=== PATIENT | male | born 1990 | race Caucasian/White ===

== ENCOUNTER 2018-03-22 13:11 | Emergency (ER) | payer OTHER ==
[2018-03-22 13:32] VITALS: BP 123/69; PULSE 116; TEMP 99; BMI 29.0
[2018-03-22] MEDS ORDERED: IBUPROFEN 400 MG TABLET (FP) PO ONE ×2 (14:29→14:32)
[2018-03-22] MEDS ORDERED: ONDANSETRON *ODT* 4 MG TABLET SL ONE (14:29)
[2018-03-22] MEDS ORDERED: ONDANSETRON *ODT* 4 MG TABLET ONE (14:32)
--- NOTE | 2018-03-22 14:47 | PDOC ---
History of Present Illness - General Chief Complaint: Cold Symptoms Stated Complaint: FLU SYMPTOMS Time Seen by Provider: 03/22/18 14:16 History Source: Patient Exam Limitations: No Limitations Past History - Travel Traveled outside of the country in the last 30 days: No Close contact w/someone who was outside of country & ill: No - Past Medical History Allergies/Adverse Reactions: Allergies Allergy/AdvReac Type Severity Reaction Status Date / Time No Known Allergies Allergy Verified 07/31/14 20:35 Home Medications: Ambulatory Orders Albuterol Sulfate Inhaler - [Ventolin HFA Inhaler -] 1 - 2 inh PO Q4H #1 inhaler 03/22/18 Ibuprofen 800 mg PO TID #30 tablet 03/22/18 Ondansetron [Zofran Odt -] 4 mg SL TID #10 od.tablet 03/22/18 Oseltamivir Phosphate [Tamiflu] 75 mg PO BID #10 capsule 03/22/18 - Immunization History Immunization Up to Date: Yes - Suicide/Smoking/Psychosocial Hx Smoking History: Former smoker Have you smoked in the past 12 months: No Information on smoking cessation initiated: No Hx Alcohol Use: No Drug/Substance Use Hx: No Substance Use Type: None Review of Systems - Review of Systems Able to Perform ROS?: Yes Comments:: 03/22/18 15:05 CONSTITUTIONAL: Present: Fever, chills, body aches Absent: diaphoresis, generalized weakness, malaise, loss of appetite HEENT: Present: rhinorrhea, nasal congestion, throat pain. Absent: difficulty swallowing, mouth swelling, ear pain, eye pain, visual Changes CARDIOVASCULAR: Absent: chest pain, loss of consciousness, palpitations, irregular heart rate, peripheral edema RESPIRATORY: Present: Cough Absent: shortness of breath, dyspnea with exertion, orthopnea, wheezing, stridor, hemoptysis GASTROINTESTINAL: Absent: abdominal pain, abdominal distension, nausea, vomiting, diarrhea, constipation, melena, hematochezia SKIN: Absent: rash, itching, pallor NEUROLOGIC: Present: headache Absent: focal weakness or paresthesias, dizziness, unsteady gait, seizure, mental status changes, bladder or bowel incontinence Is the patient limited Grenadian proficient: No *Physical Exam - Vital Signs Last Vital Signs Temp Pulse Resp BP Pulse Ox 99.0 F 116 H 18 123/69 98 03/22/18 13:26 03/22/18 13:26 03/22/18 13:26 03/22/18 13:26 03/22/18 13:26 - Physical Exam Comments: 03/22/18 15:05 GENERAL: Well developed, well nourished. Awake and alert. No acute distress. HEENT: Normocephalic, atraumatic. PERRLA, EOMI. No conjunctival pallor. Sclera are non- icteric. Moist mucous membranes. Oropharynx is clear. NECK: Supple. Full ROM. No JVD. Carotid pulses 2+ and symmetric, without bruits. No thyromegaly. No lymphadenopathy. CARDIOVASCULAR: Regular rate and rhythm. No murmurs, rubs, or gallops. Distal pulses are 2+ and symmetric. PULMONARY: No evidence of respiratory distress. Lungs clear to auscultation bilaterally. No wheezing, rales or rhonchi. ABDOMINAL: Soft. Non-tender. Non-distended. No rebound or guarding. No organomegaly. Normoactive bowel sounds. MUSCULOSKELETAL Normal range of motion at all joints. No bony deformities or tenderness. No CVA tenderness. EXTREMITIES: No cyanosis. No clubbing. No edema. No calf tenderness. SKIN: Warm and dry. Normal capillary refill. No rashes. No jaundice. NEUROLOGICAL: Alert, awake, appropriate. Cranial nerves 2-12 intact. No deficits to light touch and temperature in face, upper extremities and lower extremities. No motor deficits in the in face, upper extremities and lower extremities. Normoreflexic in the upper and lower extremities. Normal speech. Toes are down- going bilaterally. Gait is normal without ataxia. PSYCHIATRIC: Cooperative. Good eye contact. Appropriate mood and affect. Moderate Sedation - Procedure Monitoring Vital Signs: Procedure Monitoring Vital Signs Temperature 99.0 F 03/22/18 13:26 Pulse Rate 116 H 03/22/18 13:26 Respiratory Rate 18 03/22/18 13:26 Blood Pressure 123/69 03/22/18 13:26 O2 Sat by Pulse Oximetry (%) 98 03/22/18 13:26 ED Treatment Course - Medications Given in the ED: ED Medications Discontinued Medications Generic Name Dose Route Start Last Admin Trade Name Freq PRN Reason Stop Dose Admin Ondansetron HCl 4 mg 03/22/18 14:29 03/22/18 14:36 Zofran Odt - SL 03/22/18 14:30 4 mg ONCE ONE Administration *DC/Admit/Observation/Transfer Diagnosis at time of Disposition: Influenza - Discharge Dispostion Disposition: HOME Condition at time of disposition: Stable Decision to Admit order: No - Referrals Referrals: Thomas Levine [Primary Care Provider] - - Patient Instructions Additional Instructions: You have the flu. This is a virus that will get better on its own in approximately 7-10 days. You will most likely have a fever for 7-10 days because of the flu. This is to be expected. Drink plenty of fluids to prevent dehydration and get plenty of rest. Warm tea and cough drops may help your symptoms as well. Take the tamiflu twice a day for 5 days to help reduce the symptoms of the flu. This medication will not cure the flu. Take Motrin as directed for pain and fever. Take all other medications as prescribed. Follow up with your primary care doctor this week Return to the ED for difficulty breathing, shortness of breath, weakness, or if you have any other changes in your symptoms. - Post Discharge Activity Forms/Work/School Notes: Back to Work
== END 2018-03-22 15:21 | disposition home or self-care (01) ==
LOC: JERFT 13:11
DX: J11.1 Influenza due to unidentified influenza virus with other respiratory manifestations (principal); Z87.891 Personal history of nicotine dependence
CPT/HCPCS: 99281-25; Q0162

== ENCOUNTER 2018-10-25 21:16 | Emergency (ER) | payer OTHER ==
--- NOTE | 2018-10-25 21:21 | PDOC ---
Rapid Medical Evaluation Time Seen by Provider: 10/25/18 21:20 Medical Evaluation: Allergies Allergy/AdvReac Type Severity Reaction Status Date / Time No Known Allergies Allergy Verified 07/31/14 20:35 10/25/18 21:20 I have performed a brief in-person evaluation of this patient. The patient presents with a chief complaint of: neck and head pain Pertinent physical exam findings:stable and in NAD, non-focal I have ordered the following: n/a The patient will proceed to the ED for further evaluation. Discharge Disposition - Referrals Referrals: Vj Todd MD [Primary Care Provider] - - Patient Instructions - Post Discharge Activity
[2018-10-25 21:22] VITALS: TEMP 98.1; BMI 29.0
--- NOTE | 2018-10-25 22:37 | PDOC ---
Attending Attestation - Resident Resident Name: Herbert Sandoval - ED Attending Attestation I have performed the following: I have examined & evaluated the patient, The case was reviewed & discussed with the resident, I agree w/resident's findings & plan - HPI HPI: 10/26/18 02:23 see resident hpi - Physicial Exam PE: 10/26/18 02:24 GENERAL: Awake, in no acute distress HEAD: No signs of trauma EYES: ENT: Moist mucosa NECK: point tenderness left lateral C3/4 region reproducing CC with PVMS LUNGS:. Normal work of breathing. HEART: Regular rate and rhythm, ABDOMEN: Soft, nondistended CHEST WALL: BACK: No midline tenderness. EXTREMITIES:. 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
[2018-10-26] MEDS ORDERED: SODIUM CHLORIDE 1,000 ML IV STA (00:12)
[2018-10-26] MEDS ORDERED: ACETAMINOPHEN 1000 MG/100 ML VIAL (NON FORMULARY) IVPB ONE (00:12)
[2018-10-26] MEDS ORDERED: METOCLOPRAMIDE HCL INJECTION 10 MG/2 ML VIAL IVPB ONE (00:12)
--- NOTE | 2018-10-26 00:20 | PDOC ---
History of Present Illness - General Chief Complaint: Headache Stated Complaint: HEADACHE Time Seen by Provider: 10/25/18 21:20 History Source: Patient Exam Limitations: No Limitations - History of Present Illness Initial Comments: 10/26/18 00:18 Mary Valle is an otherwise healthy 28M presenting with new onset L- sided headache that extends to his L cheek and neck. Reports 3 days of a left-sided neck pain and headache that comes and goes and is associated with facial tenderness and numbness. Random onset, no provocating factors, has not tried any medications to help with the pain. Headache is limited to L side and does not radiate, no prior history of any headaches. Denies F/C, N/V, C/D, chest pain, SOB, abd pain, weakness, dizziness. Denies dental issues. Started lifting weights 3 days ago, chest workouts. 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 Past History - Past Medical History Allergies/Adverse Reactions: Allergies Allergy/AdvReac Type Severity Reaction Status Date / Time No Known Allergies Allergy Verified 10/26/18 00:41 Home Medications: Ambulatory Orders NK [No Known Home Medication] 10/26/18 - Immunization History Immunization Up to Date: Yes - Suicide/Smoking/Psychosocial Hx Smoking History: Never smoked Have you smoked in the past 12 months: No Hx Alcohol Use: No Drug/Substance Use Hx: No Substance Use Type: None Review of Systems - Review of Systems Able to Perform ROS?: Yes Is the patient limited Israeli proficient: No Constitutional: No: Symptoms Reported HEENTM: No: Symptoms Reported Respiratory: No: Symptoms reported Cardiac (ROS): No: Symptoms Reported ABD/GI: No: Symptoms Reported : No: Symptoms Reported Musculoskeletal: Yes: Neck Pain (L neck) Integumentary: No: Symptoms Reported Neurological: Yes: Headache (L head), Numbness (L cheek). No: Unsteady Gait, Ataxia Endocrine: No: Symptoms Reported Hematologic/Lymphatic: No: Symptoms Reported All Other Systems: Reviewed and Negative *Physical Exam - Vital Signs Last Vital Signs Temp Pulse Resp BP Pulse Ox 98.1 F 81 19 113/63 98 10/25/18 21:19 10/25/18 21:19 10/25/18 21:19 10/25/18 21:19 10/25/18 21:19 - Physical Exam General Appearance: Yes: Nourished, Appropriately Dressed. No: Apparent Distress HEENT: positive: EOMI, YESY, Normal ENT Inspection, Normal Voice, Pharynx Normal. negative: Scleral Icterus (R), Scleral Icterus (L), Pharyngeal Erythema , Tonsillar Exudate, Tonsillar Erythema, Nasal Congestion, Rhinorrhea, Hearing Decreased, Excessive drooling Neck: positive: Tender (L neck, muscles tense), Trachea midline, Normal Thyroid , Supple. negative: Lymphadenopathy (R), Lymphadenopathy (L) Respiratory/Chest: positive: Lungs Clear, Normal Breath Sounds. negative: Respiratory Distress, Crackles, Rales, Rhonchi Cardiovascular: positive: Regular Rhythm, Regular Rate. negative: Murmur Gastrointestinal/Abdominal: positive: Normal Bowel Sounds, Flat, Soft. negative : Tender, Organomegaly Musculoskeletal: positive: Normal Inspection. negative: CVA Tenderness Extremity: positive: Normal Capillary Refill, Normal Inspection, Normal Range of Motion, Tender, Pelvis Stable Integumentary: positive: Normal Color, Dry, Warm Neurologic: positive: Fully Oriented, Alert, Normal Mood/Affect, Normal Response , Motor Strength 5/5, Abnormal Cranial NS (L cheek some numbness and tenderness to palpation), Numbness. negative: Facial Droop ED Treatment Course - LABORATORY CBC & Chemistry Diagram: 10/26/18 00:15 10/26/18 00:13 Medical Decision Making - Medical Decision Making 10/26/18 00:18 Mary Valle is an otherwise healthy 28M presenting with new onset L- sided headache that extends to his L cheek and neck. Given L facial nerve distribution numbness, concern for ICH vs. mass compressing cranial nerves. Will order CT head, give IV NS 1L as well as Ofirmev and reglan for headache, get CMP and CBC. More likely to be MSK complaint given history, but will r/o worst causes. 10/26/18 02:12 CT head negative for any acute intracranial pathology. Labs all WNL. Headache most likely caused by a muscle spasm in the neck muscles. Good to be discharged home with recommendation to rest L arm/back and use NSAIDs as needed for pain. *DC/Admit/Observation/Transfer Diagnosis at time of Disposition: Left facial numbness, Neck pain on left side Headache Qualifiers: Headache type: unspecified Headache chronicity pattern: acute headache Intractability: not intractable Qualified Code(s): R51 - Headache - Discharge Dispostion Disposition: HOME - Referrals Referrals: Vj Todd MD [Primary Care Provider] - - Patient Instructions Printed Discharge Instructions: DI for Headache, DI for Neck Pain Additional Instructions: Today you were evaluated for neck pain and headache. We were concerned about your facial numbness and pain, so we got a CT scan of your brain that did not show any bleeding or injury to your brain that could be the cause. You likely are having some muscle spasms and tightness in your neck muscles that are pinching the nerves in your neck and face, possibly related to your exercise recently. Please try to relax your neck and hold off on strenuous exercises involving your left arm that could be causing your neck tightness. Take Tylenol or Motrin every 4-6 hours as needed for the swelling and pain. Please follow-up with your primary doctor in the next 3 days for further evaluation of your neck pain and headache. Please return to the closest emergency room as soon as possible if you experience nausea, vomiting, worsening headache, become unable to move your mouth or jaw, become unable to move your neck, or any other new or concerning symptoms. - Post Discharge Activity
[2018-10-26] MEDS ORDERED: METOCLOPRAMIDE HCL INJECTION 10 MG/2 ML VIAL ONE (00:23)
[2018-10-26] MEDS ORDERED: ACETAMINOPHEN INJECTION 100 ML IVPB ONE (00:23)
[2018-10-26 00:27] LABS: BASO % 0.6 % (0-2.0); EOS % 0.6 % (0-4.5); HEMATOCRIT 48.4 % (35.4-49); HEMOGLOBIN 15.7 GM/dL (11.7-16.9); LYMPH % 30.5 % (8-40); MCH 26.5 pg (25.7-33.7); MCHC 32.3 g/dl (32.0-35.9); MEAN PLT VOLUME 8.7 fl (7.5-11.1); MONO % 8.7 % (3.8-10.2); NEUT % 59.6 % (42.8-82.8); PLATELET COUNT 284 K/MM3 (134-434); RDW 13.5 % (11.9-15.9); WHITE BLOOD COUNT 6.9 K/mm3 (4.0-10.0)
[2018-10-26 00:54] LABS: ALBUMIN 3.9 g/dl (3.4-5.0); BILIRUBIN,TOTAL 0.5 mg/dL (0.2-1); BLOOD UREA NITROGEN 19.5 mg/dL (7-18); CALCIUM 9.1 mg/dL (8.5-10.1); CREATININE 1.2 mg/dL (0.55-1.3); POTASSIUM 4.1 mmol/L (3.5-5.1); TOT PROT 7.4 g/dl (6.4-8.2)
[2018-10-26 02:22] VITALS: BP 113/75; PULSE 74
== END 2018-10-26 02:24 | disposition home or self-care (01) ==
LOC: JER 21:16
PROC: 3E033GC Introduction of Other Therapeutic Substance into Peripheral Vein, Percutaneous Approach (ICD-10-PCS; principal; 2018-10-25)
PROC: 3E033NZ Introduction of Analgesics, Hypnotics, Sedatives into Peripheral Vein, Percutaneous Approach (ICD-10-PCS; 2018-10-25)
DX: M62.838 Other muscle spasm (principal); R51 Headache; M54.2 Cervicalgia
CPT/HCPCS: 36415; 70450-TC; 80053; 85025; 99283-25; J0131; J7030

== ENCOUNTER 2019-09-13 11:03 | Emergency (ER) | payer OTHER ==
[2019-09-13 11:24] VITALS: BP 112/71; PULSE 124; BMI 29.7
[2019-09-13] MEDS ORDERED: ACETAMINOPHEN 500 MG TABLET (FP) PO ONE (11:29)
[2019-09-13] MEDS ORDERED: ACETAMINOPHEN 500 MG TABLET (FP) ONE (11:35)
[2019-09-13] MEDS ORDERED: IBUPROFEN 600 MG TABLET (FP) PO ONE ×2 (11:48→11:55)
[2019-09-13] MEDS ORDERED: DEXAMETHASONE LIQUID 0.5 MG/5 ML PO ONE (11:54)
[2019-09-13] MEDS ORDERED: DEXAMETHASONE SOD PHOSPHATE 10 MG/1 ML VIAL ONE (11:55)
--- NOTE | 2019-09-13 11:55 | PDOC ---
History of Present Illness - General Chief Complaint: Sore Throat Stated Complaint: FEVER/ SORE THROAT Time Seen by Provider: 09/13/19 11:23 History Source: Patient Exam Limitations: Clinical Condition - History of Present Illness Initial Comments: 09/13/19 11:50 Patient with no significant past medical history present with complaint of 2 days history of sore throat and fever and painful to swallow which enlarged tonsils. Patient report taking Tylenol 2 hours prior to arrival. Denies nausea, vomiting, abdominal pain, diarrhea, cough, shortness of breath, headache, dizziness. Patient reported having COVID test done 3 months ago with positive antibiotics. Denies any other symptoms Is this a multiple visit Asthma Patient?: No Past History - Medical History Allergies/Adverse Reactions: Allergies Allergy/AdvReac Type Severity Reaction Status Date / Time shellfish derived Allergy Severe Swelling Verified 09/13/19 11:20 Home Medications: Ambulatory Orders Amoxicillin/Potassium Clav [Augmentin 875-125 Tablet] 1 each PO BID 7 Days #14 tablet 09/13/19 Ibuprofen 800 mg PO Q8H PRN #16 tablet 09/13/19 Anemia: No Cancer: No CVA: No COPD: No - Immunization History Immunization Up to Date: Yes - Psycho-Social/Smoking History Smoking History: Never smoked Have you smoked in the past 12 months: No Information on smoking cessation initiated: No - Substance Abuse Hx (Audit-C & DAST Scrn) In the last yr the pt used illegal drug/Rx for NonMed reason: No Score: Yes response is considered Positive: 0 Screen Result (Positive result requires Nsg. DAST-10): Negative Review of Systems - Review of Systems Able to Perform ROS?: Yes Is the patient limited Kenyan proficient: No Constitutional: No: Chills, Fever HEENTM: Yes: Symptoms Reported, See HPI, Throat Pain, Throat Swelling. No: Eye Pain, Blurred Vision, Tearing, Recent change in vision, Double Vision, Cataracts, Ear Pain, Ocular Prothesis, Ear Discharge, Nose Pain, Nose Congestion, Tinnitus, Nose Bleeding, Hearing Loss, Mouth Pain, Dental Problems, Difficulty Swallowing, Mouth Swelling, Other Respiratory: No: Symptoms reported, See HPI, Cough, Orthopnea, Shortness of Breath, SOB with Exertion, SOB at Rest, Stridor, Wheezing, Productive cough, Hemoptysis, Other Cardiac (ROS): No: Symptoms Reported, See HPI, Chest Pain, Edema, Irregular Heart Rate, Lightheadedness, Palpitations, Syncope, Chest Tightness, Other ABD/GI: No: Symptoms Reported, Nausea, Vomiting Musculoskeletal: No: Symptoms Reported Integumentary: No: Symptoms Reported Neurological: No: Symptoms reported, Headache, Dizziness All Other Systems: Reviewed and Negative *Physical Exam - Vital Signs Last Vital Signs Temp Pulse Resp BP Pulse Ox 101.7 F H 124 H 17 112/71 99 09/13/19 11:20 09/13/19 11:20 09/13/19 11:20 09/13/19 11:20 09/13/19 11:20 - Physical Exam 09/13/19 11:55 GENERAL: Well developed, well nourished. Awake and alert. No acute distress. HEENT: Moderately enlarged erythematous bilateral tonsils with white exudate bilateral. Oropharynx patent. No peritonsillar abscess. Normocephalic, atraumatic. PERRLA, EOMI. No conjunctival pallor. Sclera are non-icteric. Moist mucous membranes. NECK: Supple. Full ROM. Bilateral anterior cervical lymphadenopathy CARDIOVASCULAR: Regular rate and rhythm. No murmurs, rubs, or gallops. Distal pulses are 2+ and symmetric. PULMONARY: No evidence of respiratory distress. Lungs clear to auscultation bilaterally. No wheezing, rales or rhonchi. ABDOMINAL: Soft. Non-tender. Non-distended. No rebound or guarding. No organomegaly. Normoactive bowel sounds. MUSCULOSKELETAL Normal range of motion at all joints. SKIN: Warm and dry. Normal capillary refill. No cyanosis. No jaundice. NEUROLOGICAL: Alert, awake, appropriate. Gait is normal without ataxia. PSYCHIATRIC: Cooperative. Good eye contact. Appropriate mood General Appearance: Yes: Nourished, Appropriately Dressed. No: Apparent Distress ED Treatment Course - Medications Given in the ED: ED Medications Discontinued Medications Generic Name Dose Route Start Last Admin Trade Name Gauri PRN Reason Stop Dose Admin Acetaminophen 1,000 mg 09/13/19 11:29 09/13/19 11:35 Tylenol - PO 09/13/19 11:30 1,000 mg ONCE ONE Administration Medical Decision Making - Medical Decision Making 09/13/19 11:53 Patient with no significant past medical history present with complaint of 2 days history of sore throat and fever and painful to swallow which enlarged tonsils. Patient report taking Tylenol 2 hours prior to arrival. Denies nausea, vomiting, abdominal pain, diarrhea, cough, shortness of breath, headache, dizziness. Patient reported having COVID test done 3 months ago with positive antibiotics. Denies any other symptoms Exam significant for moderately enlarged erythematous tonsils with white exudates bilateral. No evidence of peritonsillar abscess. Moderate large bilateral anterior lymphadenopathy. Normal cardio and lung exam. Symptoms likely pharyngitis with tonsillitis. Rapid strep ordered to rule out strep. COVID tests ordered to evaluate for infection. Decadron 10 mg p.o. and Motrin 60 mg p.o. ordered for fever throat pain 09/13/19 13:20 Rapid strep negative but given patient enlarged with masses tonsils with exudate and fever, patient be discharged home Augmentin antibiotics and Motrin PRN for pain pending throat culture results with ENT follow-up Discharge - Discharge Information Problems reviewed: Yes Clinical Impression/Diagnosis: Pharyngitis Qualifiers: Pharyngitis/tonsillitis etiology: unspecified etiology Qualified Code(s): J02.9 - Acute pharyngitis, unspecified Acute tonsillitis Qualifiers: Pharyngitis/tonsillitis etiology: unspecified etiology Qualified Code(s): J03.90 - Acute tonsillitis, unspecified Condition: Stable Disposition: HOME - Admission No - Additional Discharge Information Prescriptions: Amoxicillin/Potassium Clav [Augmentin 875-125 Tablet] 1 each PO BID 7 Days #14 tablet Ibuprofen 800 mg PO Q8H PRN #16 tablet PRN Reason: pain - Follow up/Referral Referrals: Lee Alaniz MD [Staff Physician] - Dread Abebe MD [Staff Physician] - - Patient Discharge Instructions Patient Printed Discharge Instructions: DI for Pharyngitis/Tonsillopharyngitis -- Adult Additional Instructions: Take prescribed medication as prescribed. Gargle with salt water as needed to help with throat pain. Take prescribed medication and finish. Follow-up referred to ENT - Post Discharge Activity
[2019-09-13 12:54] LABS: THROAT:GRP A STREP ANTIGEN Negative (Negative)
[2019-09-13 13:09] VITALS: TEMP 98.5
== END 2019-09-13 13:08 | disposition home or self-care (01) ==
LOC: JERFT 11:03
DX: J02.9 Acute pharyngitis, unspecified (principal); J03.90 Acute tonsillitis, unspecified
CPT/HCPCS: 87070; 87077; 87880; 99284-25; U0003

== ENCOUNTER 2020-04-15 15:35 | Emergency (ER) | payer OTHER ==
[2020-04-15 15:45] VITALS: BP 127/80; PULSE 78; TEMP 97.5; BMI 33.0
[2020-04-15 17:14] LABS: BASO % 0.5 % (0-2.0); EOS % 1.6 % (0-4.5); LYMPH % 34.2 % (8-40); MCHC 33.3 g/dl (32.0-35.9); MEAN CELL VOLUME 84.2 fl (80-96); MEAN PLT VOLUME 8.7 fl (7.5-11.1); MONO % 12.2 % (3.8-10.2); NEUT % 51.5 % (42.8-82.8); PLATELET COUNT 293 K/MM3 (134-434); RBC 5.35 M/mm3 (4.00-5.60); RDW 13.3 % (11.9-15.9); WHITE BLOOD COUNT 5.6 K/mm3 (4.0-10.0)
[2020-04-15 17:40] LABS: CHLORIDE 105 mmol/L (98-107); POTASSIUM 3.9 mmol/L (3.5-5.1); SODIUM 139 mmol/L (136-145)
[2020-04-15 17:42] LABS: CALCIUM 8.9 mg/dL (8.5-10.1)
[2020-04-15 17:43] LABS: ALBUMIN 3.8 g/dl (3.4-5.0); ANION GAP 3 MMOL/L (8-16); BLOOD UREA NITROGEN 10.2 mg/dL (7-18); CO2 31 mmol/L (21-32); GLUCOSE,RANDOM 84 mg/dL (74-106)
[2020-04-15 17:46] LABS: SGOT/AST 30 U/L (15-37); SGPT/ALT 84 U/L (13-61)
[2020-04-15 17:48] LABS: BILIRUBIN,TOTAL 0.5 mg/dL (0.2-1); TOT PROT 7.4 g/dl (6.4-8.2)
[2020-04-15 17:49] LABS: ALK PHOS 76 U/L (45-117)
== END 2020-04-15 18:32 | disposition home or self-care (01) ==
LOC: JER 15:35
DX: R00.2 Palpitations (principal)
CPT/HCPCS: 36415; 71046-TC-FY; 80053; 82550; 84443; 84484; 85025; 93005; 93010; 99285-25

== ENCOUNTER 2020-11-03 11:44 | Emergency (ER) | payer OTHER ==
[2020-11-03 11:59] VITALS: BP 123/76; PULSE 90; TEMP 98.5; BMI 17.8
[2020-11-03 14:15] LABS: EOS % 1.4 % (0-4.5); HEMATOCRIT 45.8 % (35.4-49); HEMOGLOBIN 15.6 GM/dL (11.7-16.9); LYMPH % 35.9 % (8-40); MCH 28.1 pg (25.7-33.7); MEAN CELL VOLUME 82.6 fl (80-96); MEAN PLT VOLUME 8.5 fl (7.5-11.1); MONO % 9.7 % (3.8-10.2); PLATELET COUNT 308 10^3/uL (134-434); RBC 5.54 M/mm3 (4.00-5.60); RDW 13.4 % (11.9-15.9); WHITE BLOOD COUNT 5.5 K/mm3 (4.0-10.0)
[2020-11-03 14:35] LABS: CALCIUM 9.3 mg/dL (8.5-10.1)
[2020-11-03 14:36] LABS: ALBUMIN 3.9 g/dl (3.4-5.0); BLOOD UREA NITROGEN 11.2 mg/dL (7-18)
[2020-11-03 14:38] LABS: CREATININE 1.1 mg/dL (0.55-1.3)
[2020-11-03 14:40] LABS: BILIRUBIN,TOTAL 0.4 mg/dL (0.2-1); TOT PROT 7.8 g/dl (6.4-8.2)
== END 2020-11-03 16:28 | disposition home or self-care (01) ==
LOC: JER 11:44
DX: M54.2 Cervicalgia (principal)
CPT/HCPCS: 36415; 72040-TC; 80053; 85025; 99284-25

== ENCOUNTER 2023-01-28 08:58 | Emergency (ER) | payer OTHER ==
[2023-01-28 09:02] VITALS: BP 131/73; PULSE 66; RESP 18; TEMP 97.4; BMI 28.8
[2023-01-28 10:28] LABS: EOS % 1.3 % (0-4.5); HEMATOCRIT 46.8 % (35.4-49); HEMOGLOBIN 15.2 GM/dL (11.7-16.9); LYMPH % 40.1 % (8-40); MCH 27.5 pg (25.7-33.7); MCHC 32.5 g/dl (32.0-35.9); MEAN CELL VOLUME 84.7 fl (80-96); MONO % 9.8 % (3.8-10.2); NEUT % 47.8 % (42.8-82.8); PLATELET COUNT 301 10^3/uL (134-434); RBC 5.53 M/mm3 (4.00-5.60); RDW 13.3 % (11.9-15.9); WHITE BLOOD COUNT 4.6 K/mm3 (4.0-10.0)
[2023-01-28 10:33] LABS: URINE APPEARANCE CLEAR; URINE BILIRUBIN NEGATIVE (NEGATIVE); URINE COLOR YELLOW; URINE GLUCOSE (UA) NEGATIVE (NEGATIVE); URINE KETONE NEGATIVE (NEGATIVE); URINE LEUK ESTERASE NEGATIVE (NEGATIVE); URINE NITRITE NEGATIVE (NEGATIVE); URINE PROTEIN NEGATIVE (NEGATIVE); URINE UROBILINOGEN 0.2 mg/dL (0.2-1.0)
[2023-01-28 10:54] LABS: POTASSIUM 4.5 mmol/L (3.5-5.1)
[2023-01-28 10:55] LABS: CALCIUM 9.1 mg/dL (8.5-10.1)
[2023-01-28 10:56] LABS: BLOOD UREA NITROGEN 14.9 mg/dL (7-18)
[2023-01-28 10:59] LABS: CREATININE 1.1 mg/dL (0.55-1.3)
== END 2023-01-28 13:04 | disposition home or self-care (01) ==
LOC: JER 08:58
DX: N50.812 Left testicular pain (principal); N50.89 Other specified disorders of the male genital organs; N43.3 Hydrocele, unspecified
CPT/HCPCS: 36415; 76870-TC; 80048; 81003; 85025; 86780; 87086; 87491; 87591; 87661; 99284-25